=== PATIENT | female | born 1995 | race Caucasian/White ===

== ENCOUNTER 2019-03-10 09:04 | Emergency (ER) | payer OTHER ==
[2019-03-10] MEDS ORDERED: TETRACAINE HCL 0.5% 4ML OPTH ONE (09:33)
[2019-03-10] MEDS ORDERED: FLUORESCEIN SODIUM 1 MG/WRAP ONE (09:34)
--- NOTE | 2019-03-10 09:54 | ER ---
Nurse's Notes [facility] Name: Khris Joseph Age: 24 yrs Sex: Female : 1995 Arrival Date: 03/10/2019 Time: 09:06 Bed 17 Private MD: Diagnosis: Injury of conjunctiva and corneal abrasion without foreign body Presentation: 03/10 09:16 Presenting complaint: Patient states: "I have have scratched my eye last night, I have em had about 3 scratches in the past month" reports redness and swelling in right eye, denies blurry vision, took ibuprofen this morning, denies fever. Transition of care: patient was not received from another setting of care. Onset of symptoms was March 09, 2019. Risk Assessment: Do you want to hurt yourself or someone else? Patient reports no desire to harm self or others. Initial Sepsis Screen: Does the patient meet any 2 criteria? No. Patient's initial sepsis screen is negative. Does the patient have a suspected source of infection? Yes: Skin breakdown/wound. Care prior to arrival: None. 09:16 Method Of Arrival: Ambulatory em 09:36 Acuity: WALDEMAR 4 iw Historical: - Allergies: 09:18 No Known Allergies; em - Home Meds: 09:18 None [Active]; em - PMHx: 09:18 None; em - PSHx: 09:18 jaylan. eye sx at 9 months; em - Immunization history:: Adult Immunizations up to date. - Social history:: Smoking status: Patient/guardian denies using tobacco. - Ebola Screening: : Patient negative for fever greater than or equal to 101.5 degrees Fahrenheit, and additional compatible Ebola Virus Disease symptoms Patient denies exposure to infectious person Patient denies travel to an Ebola-affected area in the 21 days before illness onset No symptoms or risks identified at this time. Screenin:20 Abuse screen: Denies threats or abuse. Nutritional screening: No deficits noted. em Tuberculosis screening: No symptoms or risk factors identified. Fall Risk None identified. Assessment: 09:18 General: Appears in no apparent distress. comfortable, Behavior is calm, cooperative, em Denies fever. Pain: Complains of pain in right eye Pain currently is 5 out of 10 on a pain scale. Neuro: Level of Consciousness is awake, alert, obeys commands, Oriented to person, place, time, situation, Appropriate for age. Cardiovascular: Capillary refill < 3 seconds Patient's skin is warm and dry. Respiratory: Airway is patent Respiratory effort is even, unlabored, Respiratory pattern is regular, symmetrical. EENT: Eyes are tearing on right eye Sclera/Cornea are reddened in right eye. Derm: Skin is intact, is healthy with good turgor, Skin is pink, warm \\T\\ dry. Musculoskeletal: Capillary refill < 3 seconds, Range of motion: intact in all extremities. Vital Signs: 09:18 BP 111 / 73; Pulse 100; Resp 18; Temp 98.2(O); Pulse Ox 100% on R/A; Weight 67.13 kg em (R); Height 5 ft. 3 in. (160.02 cm); Pain 5/10; 09:18 Body Mass Index 26.22 (67.13 kg, 160.02 cm) em Visual Acuity: 09:20 Left Eye Visual acuity 20/20, ; Right Eye Visual acuity 20/25, ; Both Eyes Visual em acuity 20/20; With Lenses; ED Course: 09:06 Patient arrived in ED. rg4 09:09 Matthew Adame LVN is Primary Nurse. em 09:12 Bairon Mitchell FNP-C is PHCP. la1 09:12 Yobani Mo MD is Attending Physician. la1 09:18 Arm band placed on. em 09:20 Patient has correct armband on for positive identification. em 09:35 Assist provider with eye exam of right eye. using fluorescein stain, Performed by Matthew Adame LVN Patient tolerated well. Patient did not have IV access during this emergency room visit. 09:36 Triage completed. iw Administered Medications: 09:35 Drug: Tetracaine Drops 0.5 % 1 drops Route: Ophthalmic; Site: right eye; em 09:40 Follow up: Response: No adverse reaction; Pain is decreased em 09:35 Drug: Fluorescein Strip 1 strip Route: Ophthalmic; Site: right eye; em 09:40 Follow up: Response: No adverse reaction em 10:00 Drug: Tobramycin Ointment (0.3 %) 0.5 inches Route: Ophthalmic; Site: right eye; em 10:05 Follow up: Response: Medication administered at discharge. em Outcome: 09:53 Discharge ordered by MD. amor 10: Discharged to home ambulatory, with family. em 10: Condition: good 10:07 Discharge instructions given to patient, family, Instructed on discharge instructions, follow up and referral plans. medication usage, Demonstrated understanding of instructions, follow-up care, medications, Prescriptions given X 1. 10:08 Patient left the ED. em Signatures: Matthew Adame, LONG BEND SORTER em Brooklynn Sierra, FLASH RN iw Bairon Mitchell, PREMIUM AUDITOR-C PREMIUM AUDITOR-[facility] Caitlyn Correia4 Corrections: (The following items were deleted from the chart) : 10:04 No provider procedures requiring assistance completed. em em 10: 10:04 Patient did not have IV access during this emergency room visit. em em
--- NOTE | 2019-03-10 09:55 | EDPHYS ---
Physician Documentation [facility] Name: Khris Joseph Age: 24 yrs Sex: Female : 1995 Arrival Date: 03/10/2019 Time: 09:06 Bed 17 Private MD: ED Physician Yobani Mo HPI: 03/10 09:46 This 24 yrs old Female presents to ER via Ambulatory with complaints of Eye la1 Problem. 09:46 The patient is experiencing burning, redness, tearing, to the right eye. Onset: The la1 symptoms/episode began/occurred yesterday. Duration: the symptoms are continuous. Aggravated by blinking, closing eye. Associated signs and symptoms: Pertinent negatives: dizziness, ear ache, fever, headache, runny nose. Patient wears glasses, wears soft contacts. Severity of symptoms: At their worst the symptoms were moderate in the emergency department the symptoms are unchanged. The patient has experienced similar episodes in the past, a few times. pt reports she is a contact user and noticed redness and pain in her right eye that began last night. Has a corneal abrasion 3 weeks prior. . Historical: - Allergies: 09:18 No Known Allergies; em - Home Meds: 09:18 None [Active]; em - PMHx: 09:18 None; em - PSHx: 09:18 jaylan. eye sx at 9 months; em - Immunization history:: Adult Immunizations up to date. - Social history:: Smoking status: Patient/guardian denies using tobacco. - Ebola Screening: : Patient negative for fever greater than or equal to 101.5 degrees Fahrenheit, and additional compatible Ebola Virus Disease symptoms Patient denies exposure to infectious person Patient denies travel to an Ebola-affected area in the 21 days before illness onset No symptoms or risks identified at this time. ROS: 09:48 Constitutional: Negative for fever, chills, and weight loss. la1 09:48 Neck: Negative for injury, pain, and swelling, Cardiovascular: Negative for chest pain, palpitations, and edema, Respiratory: Negative for shortness of breath, cough, wheezing, and pleuritic chest pain, Abdomen/GI: Negative for abdominal pain, nausea, vomiting, diarrhea, and constipation, Back: Negative for injury and pain, MS/Extremity: Negative for injury and deformity, Skin: Negative for injury, rash, and discoloration, Neuro: Negative for headache, weakness, numbness, tingling, and seizure. 09:48 Eyes: Positive for foreign body sensation, pain, redness, tearing, Negative for icterus, itching, matting, vision loss, visual disturbance. Exam: 09:49 Visual Acuity: I have reviewed the nursing documentation. Visual acuity is within la1 normal limits. 09:49 Constitutional: This is a well developed, well nourished patient who is awake, alert, and in no acute distress. Head/Face: Normocephalic, atraumatic. 09:49 Neck: Trachea midline, no thyromegaly or masses palpated, and no cervical lymphadenopathy. Supple, full range of motion without nuchal rigidity, or vertebral point tenderness. No Meningismus. 09:49 Eyes: Periorbital structures: appear normal, no abrasion, no cellulitis, no contusion, no ecchymosis, no erythema, no laceration, no swelling, Pupils: equal, round, and reactive to light and accomodation, Extraocular movements: intact throughout, Conjunctiva: chemosis, that is mild, in right eye, injected, in the right eye, tearing noted, in right eye, Corneas: abrasion, that is small, on the right, at 3 o'clock, Sclera: Visual mckeon: are intact. Vital Signs: 09:18 BP 111 / 73; Pulse 100; Resp 18; Temp 98.2(O); Pulse Ox 100% on R/A; Weight 67.13 kg em (R); Height 5 ft. 3 in. (160.02 cm); Pain 5/10; 09:18 Body Mass Index 26.22 (67.13 kg, 160.02 cm) em Visual Acuity: 09:20 Left Eye Visual acuity 20/20, ; Right Eye Visual acuity 20/25, ; Both Eyes Visual em acuity 20/20; With Lenses; MDM: 09:23 Patient medically screened. la1 09:50 Data reviewed: vital signs, nurses notes, and as a result, I will discharge patient. la1 Medication response: tetracaine . Response to treatment: the patient's symptoms have resolved after treatment, the patient's pain is gone. ED course: Due to the fact that the pt wears contacts pt will receive rx for tobramycin opthamlic ointment. Instructed to FU with opthamology or return to ED with new or worsening symptoms. No changes in visual acuity, pt instructed to discontinue wearing her contacts until cleared by her doctor. 03/10 09:24 Order name: Visual Acuity; Complete Time: 09:35 la1 03/10 09:24 Order name: Eye Tray; Complete Time: 09:35 la1 Administered Medications: 09:35 Drug: Tetracaine Drops 0.5 % 1 drops Route: Ophthalmic; Site: right eye; em 09:40 Follow up: Response: No adverse reaction; Pain is decreased em 09:35 Drug: Fluorescein Strip 1 strip Route: Ophthalmic; Site: right eye; em 09:40 Follow up: Response: No adverse reaction em 10:00 Drug: Tobramycin Ointment (0.3 %) 0.5 inches Route: Ophthalmic; Site: right eye; em 10:05 Follow up: Response: Medication administered at discharge. em Disposition: 13:01 Co-signature as Attending Physician, Yobani Mo MD I agree with the assessment and kdr plan of care. Disposition: 03/10/19 09:53 Discharged to Home. Impression: Injury of conjunctiva and corneal abrasion without foreign body. - Condition is Stable. - Discharge Instructions: Corneal Abrasion. - Prescriptions for Tobrex 0.3 % Ophthalmic ointment - apply 1 application by OPHTHALMIC route 2-3 times daily Apply one 0.5 inch ribbon to right eye three times a day for five days; 1 Container. - Medication Reconciliation Form, Thank You Letter, Antibiotic Education form. - Follow up: Private Physician; When: 2 - 3 days; Reason: Recheck today's complaints, Re-evaluation by your physician. - Problem is new. - Symptoms are unchanged. Signatures: Yobani Mo MD MD kdr Matthew Adame, INVESTIGATION DIVISION SERGEANT INVESTIGATION DIVISION SERGEANT em Bairon Mitchell, COLORIST PHOTOGRAPHY-C COLORIST PHOTOGRAPHY-[facility] Corrections: (The following items were deleted from the chart) 10:08 09:53 03/10/2019 09:53 Discharged to Home. Impression: Injury of conjunctiva and em corneal abrasion without foreign body. Condition is Stable. Forms are Medication Reconciliation Form, Thank You Letter, Antibiotic Education, Prescription Opioid Use. Follow up: Private Physician; When: 2 - 3 days; Reason: Recheck today's complaints, Re-evaluation by your physician. Problem is new. Symptoms are unchanged. la1
[2019-03-10] MEDS ORDERED: TOBRAMYCIN SULF 0.3% OPTH OINT ONE (09:56)
== END 2019-03-10 10:08 | disposition home or self-care (01) ==
LOC: ER 09:04
DX: S05.01XA Injury of conjunctiva and corneal abrasion without foreign body, right eye, initial encounter (principal); X58.XXXA Exposure to other specified factors, initial encounter; Y93.89 Activity, other specified; Y92.9 Unspecified place or not applicable
CPT/HCPCS: 99283